=== PATIENT | female | born 1950 | race Hispanic/Latino ===

== ENCOUNTER 2017-06-10 09:11 | Emergency (ER) | payer SELFPAY ==
[~2017-06-10] VITALS: Ht 165.1 cm; Wt 93.7 kg
[2017-06-10] MEDS ORDERED: TETANUS/DIPHTHERIA TOX ADULT 0.5 ML SYR IM ONE (09:30)
[2017-06-10] MEDS ORDERED: HYDROCODONE/APAP 5MG-325MG TAB PO ONE (09:30)
== END 2017-06-10 10:38 | disposition home or self-care (01) ==
LOC: ER 09:11
DX: S00.83XA Contusion of other part of head, initial encounter (principal); S16.1XXA Strain of muscle, fascia and tendon at neck level, initial encounter; W01.198A Fall on same level from slipping, tripping and stumbling with subsequent striking against other object, initial encounter; Y92.008 Other place in unspecified non-institutional (private) residence as the place of occurrence of the external cause; I10 Essential (primary) hypertension; E11.9 Type 2 diabetes mellitus without complications
CPT/HCPCS: 90471; 90714; 99283

== ENCOUNTER 2019-02-28 15:18 | Observation (INO) | payer SELFPAY ==
[~2019-02-28] VITALS: Ht 160 cm; Wt 78.2 kg
--- OUTSIDE RECORDS SUMMARY | 2019-02-28 15:21 | XMS REPORT ---
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 Allergies, Adverse Reactions, Alerts This patient has no known allergies or adverse reactions. Medications This patient has no known medications. Encounters Start Date/Time End Date/Time Encounter Type Admission Type Attending [facility] Facility Care Department Encounter ID 2018-09-12 00:00:00 2018-09-12 00:00:00 Outpatient [facility] [id number] 2018-08-19 00:00:00 2018-08-19 00:00:00 Outpatient [facility] [id number] 2018-07-28 00:00:00 2018-07-28 00:00:00 Outpatient [facility] [id number] 2018-06-20 10:33:07 2018-06-20 10:33:07 Outpatient [facility] [id number] 2018-06-20 09:08:53 2018-06-20 09:08:53 Outpatient [facility] [id number] 2018-05-21 08:16:37 2018-05-21 08:16:37 Outpatient [facility] [id number] 2018-05-13 12:47:47 2018-05-13 12:47:47 Outpatient [facility] [id number] 2018-05-05 12:47:50 2018-05-05 12:47:50 Outpatient [facility] [id number] 2018-04-07 00:00:00 2018-04-07 00:00:00 Outpatient [facility] [id number] 2018-04-07 00:00:00 2018-04-07 00:00:00 Outpatient [facility] [id number] 2018-03-31 13:50:24 2018-03-31 13:50:24 Outpatient [facility] [id number] 2018-03-31 13:09:08 2018-03-31 13:09:08 Outpatient [facility] [id number] 2018-03-31 00:00:00 2018-03-31 00:00:00 Outpatient [facility] [id number] 2018-03-28 08:06:37 2018-03-28 08:06:37 Outpatient [facility] [id number] 2018-03-28 00:00:00 2018-03-28 00:00:00 Outpatient [facility] [id number] 2018-03-28 00:00:00 2018-03-28 00:00:00 Outpatient [facility] [id number] 2018-03-28 00:00:00 2018-03-28 00:00:00 Outpatient [facility] [id number] 2018-03-21 08:44:58 2018-03-21 08:44:58 Outpatient [facility] [id number] 2018-03-10 00:00:00 2018-03-10 00:00:00 Outpatient [facility] [id number] 2018-03-03 10:51:16 2018-03-03 10:51:16 Outpatient [facility] [id number] 2018-02-19 00:00:00 2018-02-19 00:00:00 Outpatient [facility] [id number] 2018-02-12 10:47:50 2018-02-12 10:47:50 Outpatient [facility] [id number] 2018-02-12 00:00:00 2018-02-12 00:00:00 Outpatient [facility] [id number] 2018-02-11 12:20:49 2018-02-11 12:20:49 Outpatient [facility] [id number] 2018-02-10 16:50:21 2018-02-10 16:50:21 Outpatient [facility] [id number] 2018-02-06 08:34:42 2018-02-06 08:34:42 Outpatient [facility] [id number] 2018-02-04 07:52:11 2018-02-04 07:52:11 Outpatient [facility] [id number] 2018-01-29 10:19:19 2018-01-29 10:19:19 Outpatient [facility] [id number] 2018-01-29 08:42:54 2018-01-29 08:42:54 Outpatient [facility] [id number] 2018-01-22 00:00:00 2018-01-22 00:00:00 Outpatient [facility] [id number] 2018-01-06 12:52:33 2018-01-06 12:52:33 Outpatient [facility] [id number] 2018-01-06 11:06:42 2018-01-06 11:06:42 Outpatient [facility] [id number] 2018-01-03 09:57:40 2018-01-03 09:57:40 Outpatient [facility] [id number] 2018-01-02 08:04:35 2018-01-02 08:04:35 Outpatient [facility] [id number] 2017-12-20 12:08:51 2017-12-20 12:08:51 Outpatient [facility] [id number] 2017-12-20 07:20:00 2017-12-20 07:20:00 Outpatient [facility] [id number] 2017-12-20 00:00:00 2017-12-20 00:00:00 Outpatient [facility] [id number] 2017-12-20 00:00:00 2017-12-20 00:00:00 Outpatient [facility] [id number] 2017-12-16 13:15:54 2017-12-16 13:15:54 Outpatient [facility] [id number] 2017-12-16 11:21:53 2017-12-16 11:21:53 Outpatient [facility] [id number] 2017-12-10 15:06:10 2017-12-10 15:06:10 Outpatient [facility] [id number] 2017-12-10 13:29:14 2017-12-10 13:29:14 Outpatient [facility] [id number] 2017-12-10 00:00:00 2017-12-10 00:00:00 Outpatient [facility] [id number] 2017-12-09 00:00:00 2017-12-09 00:00:00 Outpatient [facility] [id number] 2017-12-02 09:25:34 2017-12-02 09:25:34 Outpatient [facility] [id number] 2017-12-02 07:48:26 2017-12-02 07:48:26 Outpatient [facility] [id number] 2017-11-29 00:00:00 2017-11-29 00:00:00 Outpatient [facility] [id number] 2017-11-19 12:28:19 2017-11-19 12:28:19 Outpatient [facility] [id number] 2017-11-19 10:44:55 2017-11-19 10:44:55 Outpatient [facility] [id number] 2017-11-19 08:04:28 2017-11-19 08:04:28 Outpatient [facility] [id number] 2017-11-18 00:00:00 2017-11-18 00:00:00 Outpatient [facility] [id number] 2017-11-07 00:00:00 2017-11-07 00:00:00 Outpatient [facility] [id number] 2017-11-04 00:00:00 2017-11-04 00:00:00 Outpatient [facility] [id number] 2017-10-25 08:55:55 2017-10-25 08:55:55 Outpatient [facility] [id number] 2017-10-24 14:10:01 2017-10-24 14:10:01 Outpatient [facility] [id number] 2017-10-24 11:36:18 2017-10-24 11:36:18 Outpatient [facility] [id number] 2017-10-18 09:18:28 2017-10-18 09:18:28 Outpatient [facility] [id number] 2017-10-18 07:44:35 2017-10-18 07:44:35 Outpatient [facility] [id number] 2017-10-15 10:26:19 2017-10-15 10:26:19 Outpatient [facility] [id number] 2017-10-08 09:13:33 2017-10-08 09:13:33 Outpatient [facility] [id number] 2017-09-18 09:12:32 2017-09-18 09:12:32 Outpatient [facility] [id number] 2017-09-17 09:34:48 2017-09-17 09:34:48 Outpatient [facility] [id number] 2017-09-13 00:00:00 2017-09-13 00:00:00 Outpatient [facility] [id number] 2017-09-11 09:16:00 2017-09-11 09:16:00 Outpatient [facility] [id number] 2017-09-06 13:21:03 2017-09-06 13:21:03 Outpatient [facility] [id number] 2017-09-06 10:57:51 2017-09-06 10:57:51 Outpatient [facility] [id number] 2017-08-27 15:01:05 2017-08-27 15:01:05 Outpatient [facility] [id number] 2017-08-12 10:11:25 2017-08-12 10:11:25 Outpatient [facility] [id number] 2017-08-08 15:13:41 2017-08-08 15:13:41 Outpatient [facility] [id number] 2017-07-29 10:40:00 2017-07-29 10:40:00 Outpatient [facility] [id number] 2017-07-29 09:18:19 2017-07-29 09:18:19 Outpatient [facility] [id number] 2017-07-22 13:26:48 2017-07-22 13:26:48 Outpatient [facility] [id number] 2017-07-22 11:52:22 2017-07-22 11:52:22 Outpatient [facility] [id number] 2017-07-12 09:54:44 2017-07-12 09:54:44 Outpatient [facility] [id number] 2017-06-27 12:44:54 2017-06-27 12:44:54 Outpatient [facility] [id number] 2017-06-27 10:09:47 2017-06-27 10:09:47 Outpatient [facility] [id number] 2017-06-10 00:00:00 2017-06-10 00:00:00 Outpatient [facility] [id number] 2017-05-08 00:00:00 2017-05-08 00:00:00 Outpatient [facility] [id number] 2017-05-01 09:29:29 2017-05-01 09:29:29 Outpatient [facility] [id number] 2017-05-01 08:45:32 2017-05-01 08:45:32 Outpatient [facility] [id number] 2017-04-17 11:13:49 2017-04-17 11:13:49 Outpatient [facility] [id number] 2017-04-03 09:39:21 2017-04-03 09:39:21 Outpatient [facility] [id number] 2017-04-02 08:10:50 2017-04-02 08:10:50 Outpatient [facility] [id number] 2017-03-22 09:53:28 2017-03-22 09:53:28 Outpatient [facility] [id number] 2017-03-13 10:08:04 2017-03-13 10:08:04 Outpatient [facility] [id number] 2017-02-14 09:49:30 2017-02-14 09:49:30 Outpatient [facility] [id number] 2017-02-13 10:45:07 2017-02-13 10:45:07 Outpatient [facility] [id number] 2017-01-31 00:00:00 2017-01-31 00:00:00 Outpatient [facility] [id number] 2017-01-21 00:00:00 2017-01-21 00:00:00 Outpatient [facility] [id number] 2017-01-21 00:00:00 2017-01-21 00:00:00 Outpatient [facility] [id number] 2016-12-20 00:00:00 2016-12-20 00:00:00 Outpatient [facility] [id number] 2016-11-21 12:14:03 2016-11-21 12:14:03 Outpatient [facility] [id number] 2016-11-21 00:00:00 2016-11-21 00:00:00 Outpatient [facility] [id number] 2016-11-19 15:16:35 2016-11-19 15:16:35 Outpatient [facility] [id number] 2016-11-19 13:08:19 2016-11-19 13:08:19 Outpatient [facility] [id number] 2016-11-19 12:02:15 2016-11-19 12:02:15 Outpatient [facility] [id number] 2016-11-02 13:36:08 2016-11-02 13:36:08 Outpatient [facility] [id number] 2016-11-01 10:47:02 2016-11-01 10:47:02 Outpatient [facility] [id number] 2016-11-01 10:19:27 2016-11-01 10:19:27 Outpatient [facility] [id number] 2016-11-01 09:37:43 2016-11-01 09:37:43 Outpatient [facility] [id number] 2016-10-22 00:00:00 2016-10-22 00:00:00 Outpatient [facility] [id number]
[2019-02-28] MEDS ORDERED: SODIUM CHLORIDE 0.9% 1000ML 1,000 ML IV STA (15:55)
[2019-02-28 16:30] LABS: BASOPHILS % 0.3 % (0.0-1.0); EOSINOPHILS # (AUTO) 0.1 (0.0-0.4); EOSINOPHILS % 1.4 % (0.0-6.0); HEMATOCRIT 23.7 % (34.2-44.1); HEMOGLOBIN 7.4 g/dL (12.0-16.0); LYMPHOCYTES # (AUTO) 0.3 (1.0-3.2); LYMPHOCYTES % 4.6 % (18.0-39.1); MEAN CORPUSCULAR HEMOGLOBIN 27.4 pg (28-32); MEAN CORPUSCULAR HGB CONC 31.2 g/dL (31-35); MEAN CORPUSCULAR VOLUME 87.8 fL (81-99); MONOCYTES # (AUTO) 0.5 (0.2-0.8); MONOCYTES % 7.3 % (4.4-11.3); NEUTROPHILS # (AUTO) 6.2 (2.1-6.9); NEUTROPHILS % 85.8 % (38.7-80.0); PLATELET COUNT 215 x10e3/uL (140-360); RED CELL DISTRIBUTION WIDTH 15.8 % (11.7-14.4)
[2019-02-28] MEDS ORDERED: GLUCAGON FOR INJ 1 MG VIAL IV ONE (16:45)
[2019-02-28] MEDS ORDERED: SODIUM CHLORIDE 0.9% 1000ML 1,000 ML ONE (16:48)
[2019-02-28 16:51] LABS: ALBUMIN 3.5 g/dL (3.5-5.0); ANION GAP 13.9 mmol/L (8-16); CALCIUM 8.2 mg/dL (8.4-10.2); CREATININE, SERUM 2.23 mg/dL (0.57-1.11); POTASSIUM 3.9 mmol/L (3.5-5.1)
[2019-02-28 16:58] LABS: CREATINE KINASE MB 2.9 ng/mL (0-5.0)
[2019-02-28] MEDS ORDERED: CALCIUM GLUCONATE 10% INJ 4.65 MEQ in SODIUM CHLORIDE 0.9% 50ML 50 ML IV ONE (17:00)
--- NOTE | 2019-02-28 17:57 | Diagnostic Imaging Report ---
EXAMINATION: Head and cervical spine CT without contrast. HISTORY: Status post fall, head and neck pain COMPARISON: None. TECHNIQUE: Multidetector axial images were obtained without contrast from the foramen magnum to the vertex and through the cervical spine. The images were reconstructed using brain and bone algorithms. Thin section brain images were reformatted into coronal and sagittal planes. Dose modulation, iterative reconstruction, and/or weight based adjustment of the mA/kV was utilized to reduce the radiation dose to as low as reasonably achievable. HEAD CT FINDINGS: Skull/scalp: No lytic or blastic lesions. No fractures. Parenchyma: A few scattered limited hypodensities, most likely age-related minimal chronic microvascular ischemic changes slightly more confluent in the left parietal ward radiata. No mass, hemorrhage or CT evidence of acute vascular insult. Brain volume: Normal for age. Ventricles: No hydrocephalus or displacement. Arteries: No density suggestive of thrombus. Dural sinuses: No abnormal density. Extra-axial spaces: No abnormal density. Foramen magnum: No mass, Chiari malformation, or basilar invagination. Sella: No obvious mass. Paranasal/mastoid sinuses: Imaged portions unremarkable. CERVICAL SPINE CT FINDINGS: Alignment:Normal alignment and lordosis. Soft tissues: Normal. Vertebrae: Normal height and density. No acute fracture, infection or neoplasm. Degenerative changes: C1-C2: Mild degenerative changes without stenoses C2-C3: Facet arthroses mainly on the left without stenoses C3-C4: Asymmetric right disc osteophyte complex formation, uncovertebral hypertrophy. Severe right foraminal stenosis. Minimal anterolisthesis. C4-C5: Mild uncovertebral and facet arthrosis without stenoses C5-C6: Disc osteophyte complex formation, bilateral uncovertebral and facet arthrosis. Mild spinal canal and moderate bilateral foraminal stenoses. C6-C7: Normal C7-T1: Normal IMPRESSION: Head CT: 1. No acute postraumatic intracranial hemorrhage. 2. Mild chronic microvascular ischemic changes. Cervical spine CT: 1. No acute fractures or dislocations. 2. Chronic degenerative changes as described. Note: Acute post traumatic spinal cord, vascular or ligamentous injury cannot adequately be assessed with CT. Signed by: Dr. Melinda Dyson M.D. on 02/28/2019 5:54 PM
--- NOTE | 2019-02-28 18:26 | Diagnostic Imaging Report ---
EXAMINATION: CHEST SINGLE (PORTABLE) INDICATION: Fall COMPARISON: None FINDINGS: AP view TUBES and LINES: None. LUNGS: Lungs are well inflated. Lungs are clear. Prominent central pulmonary vasculature. PLEURA: No pleural effusion or pneumothorax. HEART AND MEDIASTINUM: Cardiac size is mildly enlarged. BONES AND SOFT TISSUES: No acute osseous lesion. Soft tissues are unremarkable. UPPER ABDOMEN: No free air under the diaphragm. IMPRESSION: Mild cardiomegaly and pulmonary vascular congestion. Signed by: Kb Cornelius DO on 02/28/2019 6:22 PM
--- NOTE | 2019-02-28 18:27 | Diagnostic Imaging Report ---
X-ray right knee 3 views HISTORY: Pain. COMPARISON: None available. FINDINGS: Bones: No acute displaced fracture. Osseous alignment is within normal limits. Joints: Osteophytes in the tibiofemoral and patellofemoral compartment. Soft tissues: Vascular calcifications. IMPRESSION: No acute displaced fractures. Mild degenerative changes in the knee. Signed by: Kb Cornelius DO on 02/28/2019 6:23 PM
--- NOTE | 2019-02-28 18:29 | Diagnostic Imaging Report ---
X-ray right hip 2 views and single frontal radiographic view of the pelvis. HISTORY: Pain. COMPARISON: None available. FINDINGS: Partial sacralization of right L5 transverse process with right sacrum where there is also degenerative changes. Enthesopathic changes about the hips and pelvis. Degenerative changes, disc osteophytes in the included mid to lower lumbar spine. Osteophytes of the bilateral hips. Mild degenerative changes of the sacral iliac joints. No acute displaced fracture. Osseous alignment is within normal limits. Joint spaces are maintained. IMPRESSION: No acute displaced fractures. Mild degenerative changes in the lower lumbar spine, hips, and pelvis. Signed by: Kb Cornelius DO on 02/28/2019 6:25 PM
[2019-02-28] MEDS ORDERED: SODIUM CHLORIDE 0.9% 1000ML 1,000 ML IV SCH ×2 (18:30→18:46)
[2019-02-28] MEDS ORDERED: AMITRIPTYLINE H10 MG PO (18:53)
[2019-02-28] MEDS ORDERED: CARVEDILOL12.5 MG PO (18:53)
[2019-02-28] MEDS ORDERED: ATORVASTATIN CA20 MG PO (18:53)
[2019-02-28] MEDS ORDERED: digitek PO (18:53)
[2019-02-28] MEDS ORDERED: NIFEDIPINE ER90 MG PO (18:53)
[2019-02-28] MEDS ORDERED: SPIRONOLACTONE25 MG PO (18:53)
[2019-02-28] MEDS ORDERED: FUROSEMIDE40 MG PO (18:53)
[2019-02-28] MEDS ORDERED: OMEPRAZOLE40 MG PO (18:53)
[2019-02-28] MEDS ORDERED: SODIUM CHLORIDE 0.9% 250ML 250 ML IV ONE (19:00)
[2019-02-28] MEDS ORDERED: [UNRECOGNIZED DRUG - OTHER] PO (19:08)
[2019-02-28] MEDS ORDERED: [UNRECOGNIZED DRUG - OTHER] PO (19:08)
--- NOTE | 2019-02-28 19:22 | NUR ---
REPORT CALLED. ALEX James AWARE THAT DR. LOCKE REQUESTED NO WEARING APPAREL FOLDER TO BE CONSULTED. PATIENT NEEDS CONSENT AND BLOOD TRANSFUSION
[2019-02-28 20:00] VITALS: BP 135/47
--- NOTE | 2019-02-28 20:00 | NUR ---
patient is a new admit from the ER patient is awake and talking. patient has been transferred into the bed. bed is in the lowest position and call light is within reach. will continue to monitor patient.
[2019-02-28] MEDS: ATORVASTATIN 20 MG TAB PO SCH (21:41)
--- NOTE | 2019-02-28 23:00 | NUR ---
patient has signed consent form to receive 2 units of blood.
[2019-02-28] MEDS: AMITRIPTYLINE HCL 10 MG TAB PO SCH (23:08)
[2019-02-28] MEDS ORDERED: SODIUM CHLORIDE 0.9% 250ML 250 ML ONE (23:56)
[2019-03-01] VITALS (8 sets, daily range): BP systolic 98–130; BP diastolic 46–59
--- NOTE | 2019-03-01 | NUR ---
1 unit of blood is transfusing. patient is tolerating procedure well, no adverse reactions observed. will continue to monitor transfusion process.
[2019-03-01 00:17] LABS: CREATINE KINASE MB 2.4 ng/mL (0-5.0)
--- NOTE | 2019-03-01 02:12 | NUR ---
1 unit of blood is done transfusing. no adverse reactions noted by patient.
--- NOTE | 2019-03-01 02:30 | NUR ---
patient is complaining of pain in the right IV site. A 20 gauge IV has bee started in patients left AC procedure tolerated well by patient.
[2019-03-01] MEDS ORDERED: SODIUM CHLORIDE 0.9% 250ML 250 ML ONE (02:53)
--- NOTE | 2019-03-01 03:05 | NUR ---
2 unit of blood is transfusing. no adverse reactions noted. will continue to monitor infusion process.
--- NOTE | 2019-03-01 06:00 | NUR ---
second unit of blood is done transfusing. patient tolerated transfusion process well. no adverse reactions noted.
--- NOTE | 2019-03-01 06:53 | NUR ---
report given to day nurse. patient is resting comfortably in the bed. bed is in the lowest position and call light is within reach. will continue to monitor patient.
--- NOTE | 2019-03-01 07:15 | NUR ---
The pt. is in bed asleep with family member in attendance at bedside. The pt. is in no apparent distress.
[2019-03-01 08:34] LABS: BASOPHILS % 0.3 % (0.0-1.0); EOSINOPHILS # (AUTO) 0.1 (0.0-0.4); HEMATOCRIT 26.3 % (34.2-44.1); HEMOGLOBIN 8.6 g/dL (12.0-16.0); LYMPHOCYTES # (AUTO) 0.5 (1.0-3.2); LYMPHOCYTES % 7.5 % (18.0-39.1); MEAN CORPUSCULAR HGB CONC 32.7 g/dL (31-35); MEAN CORPUSCULAR VOLUME 85.7 fL (81-99); MONOCYTES # (AUTO) 0.5 (0.2-0.8); MONOCYTES % 7.6 % (4.4-11.3); NEUTROPHILS # (AUTO) 5.3 (2.1-6.9); NEUTROPHILS % 82.3 % (38.7-80.0); PLATELET COUNT 170 x10e3/uL (140-360); RED BLOOD COUNT 3.07 x10e6/uL (3.6-5.1); RED CELL DISTRIBUTION WIDTH 16.1 % (11.7-14.4)
[2019-03-01] MEDS ORDERED: FUROSEMIDE 40 MG TAB PO SCH ×2 (09:00→17:00)
[2019-03-01] MEDS: SPIRONOLACTONE 25 MG TAB PO SCH (09:00)
[2019-03-01] MEDS: DIGOXIN 0.125 MG TAB PO SCH (09:00)
[2019-03-01] MEDS ORDERED: NIFEDIPINE CR 30 MG TAB PO SCH (09:00)
[2019-03-01] MEDS: PANTOPRAZOLE SOD 40 MG TABEC PO SCH (09:00)
[2019-03-01 09:09] LABS: ANION GAP 12.6 mmol/L (8-16); CALCIUM 7.6 mg/dL (8.4-10.2); CREATININE, SERUM 1.5 mg/dL (0.57-1.11); POTASSIUM 3.6 mmol/L (3.5-5.1)
[2019-03-01 09:18] LABS: CREATINE KINASE 19 IU/L (29-168)
[2019-03-01 09:21] LABS: B-TYPE NATRIURETIC PEPTIDE2 237.5 pg/mL (0-100)
[2019-03-01 09:30] LABS: FREE T4 (FREE THYROXINE) 0.77 ng/dL (0.8-1.8); THYROID STIMULATING HORMONE 1.527 uIU/mL (0.350-4.940)
[2019-03-01 09:51] LABS: FERRITIN 186.06 ng/mL (4.63-204.00)
[2019-03-01] MEDS ORDERED: ONDANSETRON HCL INJ 2MG/ML 2ML 2 MG/ML VIAL IV PRN (10:30)
[2019-03-01] MEDS ORDERED: HYDRALAZINE HCL 20 MG/ML VIAL IV PRN (10:30)
[2019-03-01] MEDS ORDERED: ACETAMINOPHEN 325 MG TAB PO PRN (10:30)
[2019-03-01] MEDS ORDERED: GABAPENTIN300 MG PO (11:35)
[2019-03-01] MEDS ORDERED: CELLCEPT250 MG (11:36)
[2019-03-01 15:02] LABS: FOLATE 9.6 ng/mL (7.0-15.4)
[2019-03-01 16:54] LABS: CREATINE KINASE MB 2.2 ng/mL (0-5.0)
[2019-03-01] MEDS: OYST-CAL-D 500MG TABLET PO SCH (17:25)
[2019-03-01] MEDS: FUROSEMIDE 20 MG TAB PO SCH (17:25)
--- NOTE | 2019-03-01 19:00 | NUR ---
received report from day nurse. patient is resting comfortably in bed. bed is in lowest position and call fernandez is within reach. will continue to monitor patient.
[2019-03-01] MEDS: AMITRIPTYLINE HCL 10 MG TAB PO SCH (20:54)
[2019-03-01] MEDS: ATORVASTATIN 20 MG TAB PO SCH (20:54)
[2019-03-02] VITALS: BP 121/53
[2019-03-02 03:33] LABS: BASOPHILS % 0.4 % (0.0-1.0); EOSINOPHILS # (AUTO) 0.2 (0.0-0.4); EOSINOPHILS % 3.1 % (0.0-6.0); HEMATOCRIT 28.5 % (34.2-44.1); LYMPHOCYTES # (AUTO) 0.8 (1.0-3.2); LYMPHOCYTES % 11.5 % (18.0-39.1); MEAN CORPUSCULAR HEMOGLOBIN 27.2 pg (28-32); MEAN CORPUSCULAR HGB CONC 31.6 g/dL (31-35); MEAN CORPUSCULAR VOLUME 86.1 fL (81-99); MONOCYTES # (AUTO) 0.5 (0.2-0.8); MONOCYTES % 7.7 % (4.4-11.3); NEUTROPHILS # (AUTO) 5.2 (2.1-6.9); PLATELET COUNT 197 x10e3/uL (140-360); RED BLOOD COUNT 3.31 x10e6/uL (3.6-5.1); RED CELL DISTRIBUTION WIDTH 16.8 % (11.7-14.4)
[2019-03-02 03:49] LABS: ANION GAP 14.3 mmol/L (8-16); CALCIUM 8.3 mg/dL (8.4-10.2); CREATININE, SERUM 1.33 mg/dL (0.57-1.11); POTASSIUM 3.3 mmol/L (3.5-5.1)
[2019-03-02 04:00] VITALS: BP 148/68
--- NOTE | 2019-03-02 07:00 | NUR ---
RECEIVED PATIENT RESTING IN BED. NO ACUTE DISTRESS NOTED. DENIES PAIN OR DISCOMFORT. CALL LIGHT WITHIN REACH. BED IN THE LOWEST POSITION.
--- NOTE | 2019-03-02 07:08 | NUR ---
report given to day nurse and walking rounds complete. patient is resting comfortably in bed. bed is in lowest position and call fernandez is within reach.
[2019-03-02 08:00] VITALS: BP 140/61
[2019-03-02] MEDS ORDERED: BISACODYL 5 MG TAB EC PO ONE (09:15)
[2019-03-02] MEDS ORDERED: FERROUS SULFAT325 MG PO (09:16)
[2019-03-02] MEDS ORDERED: ASCORBIC ACID500 MG PO (09:16)
[2019-03-02] MEDS: DIGOXIN 0.125 MG TAB PO SCH (09:49)
[2019-03-02] MEDS: OYST-CAL-D 500MG TABLET PO SCH (09:49)
[2019-03-02] MEDS: FUROSEMIDE 20 MG TAB PO SCH (09:49)
[2019-03-02] MEDS: PANTOPRAZOLE SOD 40 MG TABEC PO SCH (09:49)
[2019-03-02] MEDS: SPIRONOLACTONE 25 MG TAB PO SCH (09:49)
[2019-03-02 10:02] VITALS: BP 140/61
[2019-03-02] MEDS ORDERED: POTASSIUM CHLORIDE 20 MEQ TAB CR PO ONE (10:15)
[2019-03-02] MEDS ORDERED: ONDANSETRON HCL 4 MG ORAL DISINTEGRATING TAB PO PRN (10:45)
--- NOTE | 2019-03-02 11:26 | NUR ---
RECEIVED DC ORDER FROM MD. PATIENT IS IN STABLE CONDITION. O2 SAT IS 100% ON ROOM AIR. IV LINE TO LEFT AC DCD WITH TIP INTACT, PRESSURE APPLIED TO SITE, NO BLEEDING NOTED. DISCHARGE TEACHING PROVIDED TO PATIENT, SHE VERBALIZED UNDERSTANDING. DISCHARGE FOLDER WITH PRESCRIPTION ON HAND. ALL PERSONAL ITEMS ON HAND. PATIENT ACCOMPANIED TO PRIVATE AUTO VIA WHEELCHAIR BY STAFF.
--- NOTE | 2019-03-04 11:59 | Discharge Summary ---
ADMISSION DIAGNOSES: 1. Trip and fall. 2. Normocytic anemia. 3. Hypertension. 4. Elevated BNP. 5. Acute kidney injury versus chronic kidney disease III. 6. Hypocalcemia. DISCHARGE DIAGNOSES: 1. Trip and fall. 2. Normocytic anemia. 3. Hypertension. 4. Elevated BNP. 5. Acute kidney injury versus chronic kidney disease III. 6. Hypocalcemia. 7. Hypokalemia, rule out GI bleed. HISTORY: Hypertension, type 2 diabetes, scleroderma. SURGICAL HISTORY: Cholecystectomy. FAMILY HISTORY: The patient's mom, dad, and sisters have diabetes. The patient's sister also had a stroke. SOCIAL HISTORY: Noncontributory. HOSPITAL COURSE: A 68-year-old female admitted to the ER after tripping on furniture and falling to the ground. She states she fell to her knees. In the ER, her hemoglobin was 7.4. She denies bright red blood per rectum and black tarry stools, nausea, vomiting, abdominal pain, and dizziness. On admission, the patient had a right knee x-ray which was negative. Right hip x-ray negative. Chest x-ray with mild cardiomegaly. CT of the C-spine showed no acute fractures, dislocation. CT of the head showed no acute abnormalities. The patient's hemoglobin was 7.4, so she received 2 units of blood. Her stool for blood came back negative. The hemoglobin remained stable, so the patient was sent home with new prescriptions for iron and vitamin C. She will follow up with primary care in 1 to 2 weeks. The patient understands discharge instructions and agrees to plan. Vital signs stable. Patient afebrile. Dictated by Naomi Bryant NP MD CAROL Reyes/MODL /[id number]
== END 2019-03-02 11:43 | disposition home or self-care (01) ==
LOC: ER 15:18 → ERHOLD 18:46 → MED/SURG3 19:41
PROVIDERS: ADMIT Internal Medicine; ATTEND Internal Medicine
DX: S06.890A Other specified intracranial injury without loss of consciousness, initial encounter (principal); S80.01XA Contusion of right knee, initial encounter; S43.61XA Sprain of right sternoclavicular joint, initial encounter; N17.9 Acute kidney failure, unspecified; R00.1 Bradycardia, unspecified; I95.0 Idiopathic hypotension; W01.0XXA Fall on same level from slipping, tripping and stumbling without subsequent striking against object, initial encounter; T44.7X5A Adverse effect of beta-adrenoreceptor antagonists, initial encounter; M34.9 Systemic sclerosis, unspecified; Z90.49 Acquired absence of other specified parts of digestive tract; Z83.3 Family history of diabetes mellitus; Z82.3 Family history of stroke; D64.9 Anemia, unspecified; N18.3 Chronic kidney disease, stage 3 (moderate); E83.51 Hypocalcemia; E66.9 Obesity, unspecified; Z68.30 Body mass index [BMI] 30.0-30.9, adult; E11.22 Type 2 diabetes mellitus with diabetic chronic kidney disease; I12.9 Hypertensive chronic kidney disease with stage 1 through stage 4 chronic kidney disease, or unspecified chronic kidney disease; E87.6 Hypokalemia; K62.5 Hemorrhage of anus and rectum
CPT/HCPCS: 36415 ×3; 36430; 70450; 71045; 72125; 73502; 73562; 80048 ×2; 80053; 80162; 82270; 82550 ×2; 82553 ×2; 82607; 82728; 82746; 83036; 83540; 83880 ×2; 84439; 84443; 84466; 84484 ×2; 85025 ×3; 86850; 86900; 86920; 93005; 93306; 97116; 97161; 99284; G0378 ×3; J0610; J1610; J7030; J7050 ×2; P9016 ×2; S0164 ×2

== ENCOUNTER 2020-06-20 13:55 | Inpatient (IN) | payer SELFPAY ==
[~2020-06-20] VITALS: Ht 162.6 cm; Wt 75.6 kg
[~2020-06-20 13:55] MED LIST: AMITRIPTYLINE H10 MG PO; ASCORBIC ACID500 MG PO; ATORVASTATIN CA20 MG PO; CARVEDILOL12.5 MG PO; CELLCEPT250 MG; FERROUS SULFAT325 MG PO; FUROSEMIDE40 MG PO; GABAPENTIN300 MG PO; NIFEDIPINE ER90 MG PO; OMEPRAZOLE40 MG PO; SPIRONOLACTONE25 MG PO; [UNRECOGNIZED DRUG - OTHER] PO; [UNRECOGNIZED DRUG - OTHER] PO; digitek PO
[2020-06-20] MEDS ORDERED: DIGITEK125 MC2 PO (14:39)
[2020-06-20] MEDS ORDERED: MYCOPHENOLATE500 MG PO (14:39)
[2020-06-20] MEDS ORDERED: DIOVAN80 MG PO (14:39)
[2020-06-20] MEDS ORDERED: BENZONATATE100 MG PO (14:39)
[2020-06-20] MEDS ORDERED: LETAIRIS5 MG PO (14:39)
[2020-06-20] MEDS ORDERED: SERTRALINE HCL50 MG PO (14:39)
[2020-06-20] MEDS ORDERED: PROAIR HFA INH8.5 GM INH (14:39)
[2020-06-20] MEDS ORDERED: FENOFIBRATE145 MG PO (14:39)
[2020-06-20] MEDS ORDERED: REVATIO20 MG PO (14:39)
[2020-06-20 15:22] LABS: BASOPHILS % 0.2 % (0.0-1.0); HEMATOCRIT 31.7 % (34.2-44.1); HEMOGLOBIN 9.8 g/dL (12.0-16.0); LYMPHOCYTES # (AUTO) 0.2 (1.0-3.2); LYMPHOCYTES % 3.6 % (18.0-39.1); MEAN CORPUSCULAR HEMOGLOBIN 26.6 pg (28-32); MEAN CORPUSCULAR HGB CONC 30.9 g/dL (31-35); MEAN CORPUSCULAR VOLUME 85.9 fL (81-99); MONOCYTES # (AUTO) 0.2 (0.2-0.8); MONOCYTES % 4.9 % (4.4-11.3); NEUTROPHILS # (AUTO) 4.3 (2.1-6.9); NEUTROPHILS % 90.7 % (38.7-80.0); PLATELET COUNT 190 x10e3/uL (140-360); RED BLOOD COUNT 3.69 x10e6/uL (3.6-5.1); RED CELL DISTRIBUTION WIDTH 14.1 % (11.7-14.4)
[2020-06-20 15:30] LABS: INR 1.14; PROTHROMBIN TIME 15.3 seconds (11.9-14.5)
[2020-06-20 15:31] LABS: PARTIAL THROMBOPLASTIN TIME 31.8 seconds (23.8-35.5)
[2020-06-20 15:39] LABS: ALBUMIN 3.1 g/dL (3.5-5.0); ALBUMIN/GLOBULIN RATIO 0.8 (0.8-2.0); CREATININE, SERUM 2.32 mg/dL (0.57-1.11)
[2020-06-20 15:46] LABS: CREATINE KINASE MB 1.3 ng/mL (0-5.0)
[2020-06-20 16:00] LABS: BAND NEUTROPHILS % (MANUAL) 1 %; LYMPHOCYTES % (MANUAL) 3 % (19-48); MONOCYTES % (MANUAL) 6 % (3.4-9.0); NEUTROPHILS % (MANUAL) 90 % (40-74); PLATELET ESTIMATE ADEQUATE; PLATELET MORPHOLOGY COMMENT FEW GIANT
[2020-06-20 16:02] LABS: TOXIC GRANULATION MODERATE
[2020-06-20 16:03] LABS: HYPOCHROMASIA SLIGHT; POIKILOCYTOSIS SLIGHT
[2020-06-20 16:04] LABS: SCHISTOCYTES RARE
[2020-06-20] MEDS ORDERED: SODIUM CHLORIDE 0.9% 1000ML 1,000 ML IV ONE (16:45)
[2020-06-20] MEDS ORDERED: ALBUTEROL SULFATE HFA 8GM INHALATION AEROSOL INH PRN (16:45)
[2020-06-20] MEDS: CEFTRIAXONE SOD 1 GM/NS 50 ML 50 ML IV SCH (16:48)
[2020-06-20] MEDS: ASCORBIC ACID 500 MG TAB PO SCH (16:48)
[2020-06-20] MEDS: DEXAMETHASONE SOD PHOS 10 MG/1 ML VIAL IV SCH (16:48)
[2020-06-20] MEDS: ENOXAPARIN 30 MG/0.3 ML SYR SC SCH (16:48)
[2020-06-20] MEDS ORDERED: DEXAMETHASONE SOD PHOS 10 MG/1 ML VIAL IV SCH (17:00)
[2020-06-20] MEDS ORDERED: ASCORBIC ACID 500 MG TAB PO SCH (17:00)
[2020-06-20] MEDS ORDERED: ENOXAPARIN INJ 80 MG/0.8 ML SYR SC SCH (17:00)
[2020-06-20] MEDS: AZITHROMYCIN 500MG/NS 250 ML 250 ML IV SCH (17:05)
[2020-06-20] MEDS: GABAPENTIN 300 MG CAP PO SCH (20:30)
[2020-06-20] MEDS: SILDENAFIL CITRATE 20 MG TAB PO SCH (20:30)
[2020-06-20] MEDS: ATORVASTATIN 20 MG TAB PO SCH (20:30)
[2020-06-20] MEDS ORDERED: ZOLPIDEM TARTRATE 5 MG TAB PO PRN (21:00)
[2020-06-20 22:48] VITALS: BP 133/55
[2020-06-20 23:00] VITALS: BP 133/55
[2020-06-20 23:52] LABS: CREATINE KINASE MB 1.1 ng/mL (0-5.0)
[2020-06-21] VITALS (7 sets, daily range): BP systolic 136–164; BP diastolic 62–66
[2020-06-21] MEDS: DEXAMETHASONE SOD PHOS 10 MG/1 ML VIAL IV SCH (05:48)
[2020-06-21 06:32] LABS: ALBUMIN 2.9 g/dL (3.5-5.0); ALBUMIN/GLOBULIN RATIO 0.7 (0.8-2.0); ANION GAP 18.6 mmol/L (8-16); CALCIUM 8.6 mg/dL (8.4-10.2); CREATININE, SERUM 2.4 mg/dL (0.57-1.11); POTASSIUM 4.6 mmol/L (3.5-5.1)
[2020-06-21 06:50] LABS: HEMATOCRIT 29.6 % (34.2-44.1); HEMOGLOBIN 9.2 g/dL (12.0-16.0); LYMPHOCYTES # (AUTO) 0.2 (1.0-3.2); LYMPHOCYTES % 10.5 % (18.0-39.1); MEAN CORPUSCULAR HEMOGLOBIN 26.7 pg (28-32); MEAN CORPUSCULAR HGB CONC 31.1 g/dL (31-35); MONOCYTES # (AUTO) 0.1 (0.2-0.8); MONOCYTES % 3.2 % (4.4-11.3); NEUTROPHILS # (AUTO) 1.9 (2.1-6.9); NEUTROPHILS % 85.4 % (38.7-80.0); PLATELET COUNT 183 x10e3/uL (140-360); RED BLOOD COUNT 3.44 x10e6/uL (3.6-5.1); RED CELL DISTRIBUTION WIDTH 14.2 % (11.7-14.4)
[2020-06-21] MEDS ORDERED: ZINC SULFATE 220 MG CAP PO SCH (09:00)
[2020-06-21] MEDS: ENOXAPARIN 30 MG/0.3 ML SYR SC SCH ×2 (09:22→17:30)
[2020-06-21] MEDS: ASCORBIC ACID 500 MG TAB PO SCH ×2 (09:22→17:30)
[2020-06-21] MEDS: VALSARTAN 80 MG TAB PO SCH (09:22)
[2020-06-21] MEDS: SILDENAFIL CITRATE 20 MG TAB PO SCH ×3 (09:22→20:29)
[2020-06-21] MEDS: ZINC SULFATE 50 MG CAP PO SCH (09:22)
[2020-06-21 11:58] LABS: LYMPHOCYTES % (MANUAL) 8 % (19-48); MONOCYTES % (MANUAL) 3 % (3.4-9.0); NEUTROPHILS % (MANUAL) 89 % (40-74); PLATELET ESTIMATE ADEQUATE; PLATELET MORPHOLOGY COMMENT NORMAL; RBC MORPHOLOGY COMMENT NORMAL
[2020-06-21 13:40] LABS: CREATINE KINASE MB 1.2 ng/mL (0-5.0)
[2020-06-21] MEDS: CEFTRIAXONE SOD 1 GM/NS 50 ML 50 ML IV SCH (17:30)
[2020-06-21] MEDS: AZITHROMYCIN 500MG/NS 250 ML 250 ML IV SCH (18:37)
[2020-06-21] MEDS ORDERED: SODIUM CHLORIDE 0.9% 1000ML 1,000 ML IV ONE (19:45)
[2020-06-21 20:18] LABS: CLARITY,URINE TURBID (CLEAR); COLOR,URINE YELLOW (YELLOW)
[2020-06-21 20:19] LABS: KETONES,URINE NEGATIVE (NEGATIVE); LEUKOCYTE ESTERASE ,URINE LARGE (NEGATIVE); NITRITE,URINE NEGATIVE (NEGATIVE); PROTEIN,URINE DIPSTICK 1+ (NEGATIVE)
[2020-06-21 20:20] LABS: URINE UROBILINOGEN 0.2 mg/dL (0.2 - 1)
[2020-06-21 20:24] LABS: BACTERIA,URINE FEW /HPF; EPITHELIAL CELLS,URINE RARE /LPF; RBC,URINE 21-50 /HPF (0-5); WBC,URINE (MAN) >50 /HPF (0-5)
[2020-06-21] MEDS: GABAPENTIN 300 MG CAP PO SCH (20:29)
[2020-06-21] MEDS: ATORVASTATIN 20 MG TAB PO SCH (20:29)
[2020-06-22] VITALS (7 sets, daily range): BP systolic 124–137; BP diastolic 45–64
[2020-06-22 05:23] LABS: ANION GAP 18.8 mmol/L (8-16); CALCIUM 8.9 mg/dL (8.4-10.2); CREATININE, SERUM 2.21 mg/dL (0.57-1.11); POTASSIUM 4.8 mmol/L (3.5-5.1)
[2020-06-22] MEDS: DEXAMETHASONE SOD PHOS 10 MG/1 ML VIAL IV SCH (05:55)
[2020-06-22] MEDS: ENOXAPARIN 30 MG/0.3 ML SYR SC SCH ×2 (08:43→15:45)
[2020-06-22] MEDS: SILDENAFIL CITRATE 20 MG TAB PO SCH ×3 (08:43→20:13)
[2020-06-22] MEDS: ZINC SULFATE 50 MG CAP PO SCH (08:43)
[2020-06-22] MEDS: ASCORBIC ACID 500 MG TAB PO SCH ×2 (08:43→15:45)
[2020-06-22] MEDS: VALSARTAN 80 MG TAB PO SCH (08:43)
[2020-06-22] MEDS: CEFTRIAXONE SOD 1 GM/NS 50 ML 50 ML IV SCH (14:21)
[2020-06-22] MEDS ORDERED: REMDESIVIR 200MG/NS 100ML 200 MG in SODIUM CHLORIDE 0.9% 100 ML 100 ML IV ONE (15:30)
[2020-06-22] MEDS: AZITHROMYCIN 500MG/NS 250 ML 250 ML IV SCH (17:23)
[2020-06-22] MEDS: GABAPENTIN 300 MG CAP PO SCH (20:13)
[2020-06-22] MEDS: ATORVASTATIN 20 MG TAB PO SCH (20:13)
[2020-06-23] VITALS (7 sets, daily range): BP systolic 140–182; BP diastolic 52–71
[2020-06-23] MEDS: DEXAMETHASONE SOD PHOS 10 MG/1 ML VIAL IV SCH (06:04)
[2020-06-23] MEDS: ENOXAPARIN 30 MG/0.3 ML SYR SC SCH ×2 (09:42→17:33)
[2020-06-23] MEDS: SILDENAFIL CITRATE 20 MG TAB PO SCH ×3 (09:42→21:36)
[2020-06-23] MEDS: ZINC SULFATE 50 MG CAP PO SCH (09:42)
[2020-06-23] MEDS: ASCORBIC ACID 500 MG TAB PO SCH ×2 (09:42→17:33)
[2020-06-23] MEDS ORDERED: LIDOCAINE HCL 1% LOCAL INJ 20 ML VIAL ONE (10:01)
[2020-06-23] MEDS ORDERED: HEPARIN SOD (PORCINE) 1000 UNIT/ML SDV ONE (10:01)
[2020-06-23] MEDS ORDERED: SODIUM CHLORIDE 0.9% 1000ML 1,000 ML ONE (12:12)
[2020-06-23] MEDS ORDERED: MANNITOL 25% 12.5GM/50 ML VIAL IV PRN (12:30)
[2020-06-23] MEDS ORDERED: SODIUM CHLORIDE 0.9% 1000ML 2,000 ML IV PRN (15:45)
[2020-06-23] MEDS ORDERED: ALBUMIN 25% 12.5GM 0.25 GM/ML BTL IV PRN (15:45)
[2020-06-23] MEDS ORDERED: HEPARIN SOD (PORCINE) 1000 UNIT/ML SDV IV PRN (15:45)
[2020-06-23] MEDS: REMDESIVIR 100MG/NS 100ML 100 MG in SODIUM CHLORIDE 0.9% 100 ML 100 ML IV SCH (17:00)
[2020-06-23] MEDS: AZITHROMYCIN 500MG/NS 250 ML 250 ML IV SCH (17:33)
[2020-06-23] MEDS: CEFTRIAXONE SOD 1 GM/NS 50 ML 50 ML IV SCH (18:42)
[2020-06-23] MEDS: ATORVASTATIN 20 MG TAB PO SCH (21:36)
[2020-06-23] MEDS: GABAPENTIN 300 MG CAP PO SCH (21:36)
[2020-06-24] VITALS (8 sets, daily range): BP systolic 147–189; BP diastolic 57–78
[2020-06-24] MEDS: DEXAMETHASONE SOD PHOS 10 MG/1 ML VIAL IV SCH (05:14)
[2020-06-24 05:17] LABS: ANION GAP 19.2 mmol/L (8-16); CALCIUM 8.5 mg/dL (8.4-10.2); CREATININE, SERUM 1.27 mg/dL (0.57-1.11); POTASSIUM 4.2 mmol/L (3.5-5.1)
[2020-06-24] MEDS: SILDENAFIL CITRATE 20 MG TAB PO SCH ×4 (09:00→20:29)
[2020-06-24] MEDS: ASCORBIC ACID 500 MG TAB PO SCH ×2 (09:17→17:34)
[2020-06-24] MEDS: ZINC SULFATE 50 MG CAP PO SCH (09:17)
[2020-06-24] MEDS: ENOXAPARIN 30 MG/0.3 ML SYR SC SCH ×2 (09:17→17:34)
[2020-06-24] MEDS ORDERED: HEPARIN SOD (PORCINE) 1000 UNIT/ML SDV IV PRN (11:45)
[2020-06-24] MEDS: REMDESIVIR 100MG/NS 100ML 100 MG in SODIUM CHLORIDE 0.9% 100 ML 100 ML IV SCH (17:33)
[2020-06-24] MEDS: CEFTRIAXONE SOD 1 GM/NS 50 ML 50 ML IV SCH (17:34)
[2020-06-24] MEDS: AZITHROMYCIN 500MG/NS 250 ML 250 ML IV SCH (17:34)
[2020-06-24] MEDS: GABAPENTIN 300 MG CAP PO SCH (20:29)
[2020-06-24] MEDS: ATORVASTATIN 20 MG TAB PO SCH (20:29)
[2020-06-25] VITALS (8 sets, daily range): BP systolic 122–162; BP diastolic 51–67
[2020-06-25] MEDS: DEXAMETHASONE SOD PHOS 10 MG/1 ML VIAL IV SCH (05:11)
[2020-06-25 05:13] LABS: HEMATOCRIT 33.9 % (34.2-44.1); HEMOGLOBIN 10.5 g/dL (12.0-16.0); MEAN CORPUSCULAR HEMOGLOBIN 27.1 pg (28-32); MEAN CORPUSCULAR VOLUME 87.4 fL (81-99); PLATELET COUNT 198 x10e3/uL (140-360); RED BLOOD COUNT 3.88 x10e6/uL (3.6-5.1); RED CELL DISTRIBUTION WIDTH 14.2 % (11.7-14.4)
[2020-06-25 05:28] LABS: ANION GAP 19.4 mmol/L (8-16); CALCIUM 8.7 mg/dL (8.4-10.2); CREATININE, SERUM 1.21 mg/dL (0.57-1.11); POTASSIUM 4.4 mmol/L (3.5-5.1)
[2020-06-25 07:28] LABS: LYMPHOCYTES % (MANUAL) 3 % (19-48); MONOCYTES % (MANUAL) 6 % (3.4-9.0); NEUTROPHILS % (MANUAL) 91 % (40-74); PLATELET ESTIMATE ADEQUATE; RBC MORPHOLOGY COMMENT NORMAL
[2020-06-25 07:29] LABS: PLATELET MORPHOLOGY COMMENT NORMAL
[2020-06-25] MEDS: SILDENAFIL CITRATE 20 MG TAB PO SCH ×3 (09:00→21:11)
[2020-06-25] MEDS: ENOXAPARIN 30 MG/0.3 ML SYR SC SCH ×2 (09:18→17:02)
[2020-06-25] MEDS: ASCORBIC ACID 500 MG TAB PO SCH ×2 (09:18→17:02)
[2020-06-25] MEDS: ZINC SULFATE 50 MG CAP PO SCH (09:18)
[2020-06-25] MEDS: REMDESIVIR 100MG/NS 100ML 100 MG in SODIUM CHLORIDE 0.9% 100 ML 100 ML IV SCH (14:06)
[2020-06-25] MEDS: AZITHROMYCIN 500MG/NS 250 ML 250 ML IV SCH (15:08)
[2020-06-25] MEDS: CEFTRIAXONE SOD 1 GM/NS 50 ML 50 ML IV SCH (15:08)
[2020-06-25] MEDS: GABAPENTIN 300 MG CAP PO SCH (21:11)
[2020-06-25] MEDS: ATORVASTATIN 20 MG TAB PO SCH (21:11)
[2020-06-26] VITALS (9 sets, daily range): BP systolic 91–183; BP diastolic 47–66
[2020-06-26] MEDS: DEXAMETHASONE SOD PHOS 10 MG/1 ML VIAL IV SCH (05:39)
[2020-06-26 06:16] LABS: BASOPHILS % 0.2 % (0.0-1.0); EOSINOPHILS # (AUTO) 0.1 (0.0-0.4); EOSINOPHILS % 0.8 % (0.0-6.0); HEMATOCRIT 32.1 % (34.2-44.1); LYMPHOCYTES # (AUTO) 0.7 (1.0-3.2); LYMPHOCYTES % 10.1 % (18.0-39.1); MEAN CORPUSCULAR HEMOGLOBIN 26.9 pg (28-32); MEAN CORPUSCULAR HGB CONC 31.2 g/dL (31-35); MEAN CORPUSCULAR VOLUME 86.3 fL (81-99); MONOCYTES # (AUTO) 0.5 (0.2-0.8); MONOCYTES % 7.1 % (4.4-11.3); NEUTROPHILS # (AUTO) 5.2 (2.1-6.9); NEUTROPHILS % 80.6 % (38.7-80.0); PLATELET COUNT 186 x10e3/uL (140-360); RED BLOOD COUNT 3.72 x10e6/uL (3.6-5.1); RED CELL DISTRIBUTION WIDTH 14.2 % (11.7-14.4)
[2020-06-26 06:38] LABS: ANION GAP 14.4 mmol/L (8-16); CALCIUM 8.4 mg/dL (8.4-10.2); CREATININE, SERUM 1.15 mg/dL (0.57-1.11); POTASSIUM 4.4 mmol/L (3.5-5.1)
[2020-06-26] MEDS: SILDENAFIL CITRATE 20 MG TAB PO SCH ×3 (08:40→20:39)
[2020-06-26] MEDS: ZINC SULFATE 50 MG CAP PO SCH (08:41)
[2020-06-26] MEDS: ASCORBIC ACID 500 MG TAB PO SCH ×2 (08:41→14:33)
[2020-06-26] MEDS: ENOXAPARIN 30 MG/0.3 ML SYR SC SCH ×2 (08:41→17:00)
[2020-06-26] MEDS: REMDESIVIR 100MG/NS 100ML 100 MG in SODIUM CHLORIDE 0.9% 100 ML 100 ML IV SCH (14:33)
[2020-06-26] MEDS: CEFTRIAXONE SOD 1 GM/NS 50 ML 50 ML IV SCH (15:45)
[2020-06-26] MEDS: AZITHROMYCIN 500MG/NS 250 ML 250 ML IV SCH (17:00)
[2020-06-26] MEDS: POLYETHYLENE GLYCOL 3350 17 GM PACK PO SCH (17:02)
[2020-06-26] MEDS ORDERED: BISACODYL 10 MG SUPP PR PRN (19:15)
[2020-06-26] MEDS: ATORVASTATIN 20 MG TAB PO SCH (20:39)
[2020-06-26] MEDS: GABAPENTIN 300 MG CAP PO SCH (20:39)
[2020-06-27] VITALS (8 sets, daily range): BP systolic 108–153; BP diastolic 51–59
[2020-06-27 05:19] LABS: BASOPHILS % 0.1 % (0.0-1.0); EOSINOPHILS # (AUTO) 0.1 (0.0-0.4); EOSINOPHILS % 1.1 % (0.0-6.0); HEMATOCRIT 29.7 % (34.2-44.1); HEMOGLOBIN 9.2 g/dL (12.0-16.0); LYMPHOCYTES # (AUTO) 0.8 (1.0-3.2); LYMPHOCYTES % 9.4 % (18.0-39.1); MEAN CORPUSCULAR HEMOGLOBIN 26.3 pg (28-32); MEAN CORPUSCULAR VOLUME 84.9 fL (81-99); MONOCYTES # (AUTO) 0.4 (0.2-0.8); MONOCYTES % 5.5 % (4.4-11.3); NEUTROPHILS # (AUTO) 6.6 (2.1-6.9); NEUTROPHILS % 81.9 % (38.7-80.0); PLATELET COUNT 224 x10e3/uL (140-360); RED CELL DISTRIBUTION WIDTH 14.3 % (11.7-14.4)
[2020-06-27] MEDS: DEXAMETHASONE SOD PHOS 10 MG/1 ML VIAL IV SCH (05:22)
[2020-06-27 05:55] LABS: ANION GAP 14.5 mmol/L (8-16); CALCIUM 8.5 mg/dL (8.4-10.2); CREATININE, SERUM 0.99 mg/dL (0.57-1.11); POTASSIUM 4.5 mmol/L (3.5-5.1)
[2020-06-27] MEDS: POLYETHYLENE GLYCOL 3350 17 GM PACK PO SCH (09:00)
[2020-06-27] MEDS: SILDENAFIL CITRATE 20 MG TAB PO SCH ×3 (10:00→20:22)
[2020-06-27] MEDS: ASCORBIC ACID 500 MG TAB PO SCH ×2 (10:00→16:21)
[2020-06-27] MEDS: ENOXAPARIN 30 MG/0.3 ML SYR SC SCH (10:00)
[2020-06-27] MEDS: ZINC SULFATE 50 MG CAP PO SCH (10:00)
[2020-06-27] MEDS: CEFTRIAXONE SOD 1 GM/NS 50 ML 50 ML IV SCH (14:46)
[2020-06-27] MEDS ORDERED: SODIUM CHLORIDE 0.9% 250ML 250 ML ONE (14:46)
[2020-06-27] MEDS: AZITHROMYCIN 500MG/NS 250 ML 250 ML IV SCH (16:21)
[2020-06-27] MEDS: ATORVASTATIN 20 MG TAB PO SCH (20:22)
[2020-06-27] MEDS: GABAPENTIN 300 MG CAP PO SCH (20:22)
[2020-06-28] VITALS (8 sets, daily range): BP systolic 136–168; BP diastolic 51–68
[2020-06-28 05:32] LABS: ANION GAP 9.6 mmol/L (8-16); CALCIUM 8.3 mg/dL (8.4-10.2); CREATININE, SERUM 0.95 mg/dL (0.57-1.11); POTASSIUM 4.6 mmol/L (3.5-5.1)
[2020-06-28] MEDS: SILDENAFIL CITRATE 20 MG TAB PO SCH ×3 (09:45→21:21)
[2020-06-28] MEDS: POLYETHYLENE GLYCOL 3350 17 GM PACK PO SCH (09:45)
[2020-06-28] MEDS: ASCORBIC ACID 500 MG TAB PO SCH ×2 (09:45→16:38)
[2020-06-28] MEDS: ZINC SULFATE 50 MG CAP PO SCH (09:45)
[2020-06-28] MEDS: PREDNISONE 20 MG TAB PO SCH (16:37)
[2020-06-28] MEDS: ATORVASTATIN 20 MG TAB PO SCH (21:21)
[2020-06-28] MEDS: GABAPENTIN 300 MG CAP PO SCH (21:21)
[2020-06-29] VITALS (8 sets, daily range): BP systolic 139–153; BP diastolic 45–56
[2020-06-29] MEDS: POLYETHYLENE GLYCOL 3350 17 GM PACK PO SCH (09:00)
[2020-06-29] MEDS: PREDNISONE 20 MG TAB PO SCH ×2 (09:05→16:37)
[2020-06-29] MEDS: ZINC SULFATE 50 MG CAP PO SCH (09:05)
[2020-06-29] MEDS: SILDENAFIL CITRATE 20 MG TAB PO SCH ×3 (09:05→21:13)
[2020-06-29] MEDS: ASCORBIC ACID 500 MG TAB PO SCH ×2 (09:05→16:37)
[2020-06-29] MEDS: ATORVASTATIN 20 MG TAB PO SCH (21:13)
[2020-06-29] MEDS: GABAPENTIN 300 MG CAP PO SCH (21:13)
[2020-06-30] VITALS: BP 149/54
[2020-06-30 07:30] VITALS: BP 159/52
[2020-06-30] MEDS: POLYETHYLENE GLYCOL 3350 17 GM PACK PO SCH (09:00)
[2020-06-30] MEDS: SILDENAFIL CITRATE 20 MG TAB PO SCH ×3 (09:03→20:46)
[2020-06-30] MEDS: PREDNISONE 20 MG TAB PO SCH ×2 (09:03→17:32)
[2020-06-30] MEDS: ASCORBIC ACID 500 MG TAB PO SCH ×2 (09:03→17:32)
[2020-06-30] MEDS: ZINC SULFATE 50 MG CAP PO SCH (09:03)
[2020-06-30 11:30] VITALS: BP 155/67
[2020-06-30 16:00] VITALS: BP 165/81
[2020-06-30] MEDS: ATORVASTATIN 20 MG TAB PO SCH (20:46)
[2020-06-30 21:00] VITALS: BP 158/62
[2020-07-01] VITALS (7 sets, daily range): BP systolic 148–177; BP diastolic 56–76
[2020-07-01] MEDS: CLONIDINE HCL 0.1 MG TAB PO PRN ×2 (01:14→16:40)
[2020-07-01 08:31] LABS: MEAN CORPUSCULAR HEMOGLOBIN 26.3 pg (28-32); MEAN CORPUSCULAR HGB CONC 30.3 g/dL (31-35); MEAN CORPUSCULAR VOLUME 86.8 fL (81-99); PLATELET COUNT 306 x10e3/uL (140-360); RED CELL DISTRIBUTION WIDTH 14.6 % (11.7-14.4)
[2020-07-01] MEDS: SILDENAFIL CITRATE 20 MG TAB PO SCH ×3 (09:00→21:00)
[2020-07-01] MEDS: ASCORBIC ACID 500 MG TAB PO SCH ×2 (09:00→17:28)
[2020-07-01] MEDS: POLYETHYLENE GLYCOL 3350 17 GM PACK PO SCH (09:00)
[2020-07-01] MEDS: PREDNISONE 20 MG TAB PO SCH (09:00)
[2020-07-01] MEDS: ZINC SULFATE 50 MG CAP PO SCH (09:00)
[2020-07-01 09:13] LABS: ANION GAP 14.9 mmol/L (8-16); CALCIUM 9.1 mg/dL (8.4-10.2); CREATININE, SERUM 1.06 mg/dL (0.57-1.11); POTASSIUM 4.9 mmol/L (3.5-5.1)
[2020-07-01] MEDS: ATORVASTATIN 20 MG TAB PO SCH (21:00)
[2020-07-01] MEDS: ACETAMINOPHEN 325 MG TAB PO PRN (23:30)
[2020-07-02] VITALS (9 sets, daily range): BP systolic 137–178; BP diastolic 52–74
[2020-07-02] MEDS: POLYETHYLENE GLYCOL 3350 17 GM PACK PO SCH (09:00)
[2020-07-02] MEDS: ZINC SULFATE 50 MG CAP PO SCH (09:30)
[2020-07-02] MEDS: CLONIDINE HCL 0.1 MG TAB PO PRN (09:30)
[2020-07-02] MEDS: ASCORBIC ACID 500 MG TAB PO SCH ×2 (09:30→15:59)
[2020-07-02] MEDS: SILDENAFIL CITRATE 20 MG TAB PO SCH ×3 (09:30→20:36)
[2020-07-02] MEDS ORDERED: ENOXAPARIN 30 MG/0.3 ML SYR SC SCH (17:00)
[2020-07-02] MEDS: ATORVASTATIN 20 MG TAB PO SCH (20:36)
[2020-07-02] MEDS: ACETAMINOPHEN 325 MG TAB PO PRN (23:12)
[2020-07-03] VITALS (8 sets, daily range): BP systolic 145–176; BP diastolic 52–68
[2020-07-03 07:38] LABS: BASOPHILS % 0.4 % (0.0-1.0); EOSINOPHILS # (AUTO) 0.4 (0.0-0.4); EOSINOPHILS % 6.7 % (0.0-6.0); HEMATOCRIT 30.1 % (34.2-44.1); HEMOGLOBIN 9.2 g/dL (12.0-16.0); LYMPHOCYTES # (AUTO) 0.6 (1.0-3.2); LYMPHOCYTES % 11.1 % (18.0-39.1); MEAN CORPUSCULAR HEMOGLOBIN 26.4 pg (28-32); MEAN CORPUSCULAR HGB CONC 30.6 g/dL (31-35); MEAN CORPUSCULAR VOLUME 86.5 fL (81-99); MONOCYTES # (AUTO) 0.6 (0.2-0.8); MONOCYTES % 11.1 % (4.4-11.3); NEUTROPHILS # (AUTO) 3.9 (2.1-6.9); NEUTROPHILS % 69.1 % (38.7-80.0); PLATELET COUNT 309 x10e3/uL (140-360); RED BLOOD COUNT 3.48 x10e6/uL (3.6-5.1); RED CELL DISTRIBUTION WIDTH 14.7 % (11.7-14.4)
[2020-07-03 07:51] LABS: ANION GAP 10.5 mmol/L (8-16); BLOOD UREA NITROGEN 40 mg/dL (7-26); BUN/CREATININE RATIO 45 (6-25); CALCIUM 8.6 mg/dL (8.4-10.2); CARBON DIOXIDE 30 mmol/L (22-29); CHLORIDE 101 mmol/L (98-107); CREATININE, SERUM 0.88 mg/dL (0.57-1.11); EST GLOMERULAR FILTRATION RATE > 60 ML/MIN (60-); GLUCOSE 107 mg/dL (74-118); POTASSIUM 4.5 mmol/L (3.5-5.1); SODIUM 137 mmol/L (136-145)
[2020-07-03] MEDS: POLYETHYLENE GLYCOL 3350 17 GM PACK PO SCH (09:00)
[2020-07-03 10:09] LABS: BASOPHILS % 0.4 % (0.0-1.0); EOSINOPHILS # (AUTO) 0.4 (0.0-0.4); EOSINOPHILS % 4.8 % (0.0-6.0); HEMATOCRIT 31.7 % (34.2-44.1); HEMOGLOBIN 9.7 g/dL (12.0-16.0); LYMPHOCYTES # (AUTO) 0.6 (1.0-3.2); LYMPHOCYTES % 7.4 % (18.0-39.1); MEAN CORPUSCULAR HEMOGLOBIN 26.4 pg (28-32); MEAN CORPUSCULAR HGB CONC 30.6 g/dL (31-35); MEAN CORPUSCULAR VOLUME 86.4 fL (81-99); MONOCYTES # (AUTO) 0.8 (0.2-0.8); MONOCYTES % 10.8 % (4.4-11.3); NEUTROPHILS # (AUTO) 5.7 (2.1-6.9); NEUTROPHILS % 75.4 % (38.7-80.0); PLATELET COUNT 313 x10e3/uL (140-360); RED BLOOD COUNT 3.67 x10e6/uL (3.6-5.1); RED CELL DISTRIBUTION WIDTH 14.7 % (11.7-14.4)
[2020-07-03] MEDS: ASCORBIC ACID 500 MG TAB PO SCH ×2 (10:16→16:56)
[2020-07-03] MEDS: SILDENAFIL CITRATE 20 MG TAB PO SCH ×3 (10:16→21:23)
[2020-07-03] MEDS: PANTOPRAZOLE 40 MG 10ML VIAL IV SCH ×2 (10:16→16:56)
[2020-07-03] MEDS: ZINC SULFATE 50 MG CAP PO SCH (10:16)
[2020-07-03 10:25] LABS: INR 0.94; PARTIAL THROMBOPLASTIN TIME 27.6 seconds (23.8-35.5); PROTHROMBIN TIME 13.1 seconds (11.9-14.5)
[2020-07-03] MEDS: CLONIDINE HCL 0.1 MG TAB PO PRN (16:57)
[2020-07-03 18:50] LABS: BASOPHILS % 0.3 % (0.0-1.0); EOSINOPHILS # (AUTO) 0.4 (0.0-0.4); EOSINOPHILS % 4.6 % (0.0-6.0); HEMATOCRIT 30.3 % (34.2-44.1); HEMOGLOBIN 9.3 g/dL (12.0-16.0); LYMPHOCYTES # (AUTO) 0.7 (1.0-3.2); LYMPHOCYTES % 9.5 % (18.0-39.1); MEAN CORPUSCULAR HEMOGLOBIN 26.6 pg (28-32); MEAN CORPUSCULAR HGB CONC 30.7 g/dL (31-35); MEAN CORPUSCULAR VOLUME 86.8 fL (81-99); MONOCYTES # (AUTO) 0.9 (0.2-0.8); MONOCYTES % 11.4 % (4.4-11.3); NEUTROPHILS # (AUTO) 5.6 (2.1-6.9); NEUTROPHILS % 72.8 % (38.7-80.0); PLATELET COUNT 307 x10e3/uL (140-360); RED BLOOD COUNT 3.49 x10e6/uL (3.6-5.1); RED CELL DISTRIBUTION WIDTH 14.7 % (11.7-14.4)
[2020-07-03] MEDS: ATORVASTATIN 20 MG TAB PO SCH (21:23)
[2020-07-03] MEDS: ACETAMINOPHEN 325 MG TAB PO PRN (21:24)
[2020-07-04] VITALS (10 sets, daily range): BP systolic 136–177; BP diastolic 43–74
[2020-07-04 05:34] LABS: BASOPHILS % 0.4 % (0.0-1.0); EOSINOPHILS # (AUTO) 0.4 (0.0-0.4); EOSINOPHILS % 6.2 % (0.0-6.0); HEMATOCRIT 28.2 % (34.2-44.1); HEMOGLOBIN 8.5 g/dL (12.0-16.0); LYMPHOCYTES # (AUTO) 0.7 (1.0-3.2); LYMPHOCYTES % 12.3 % (18.0-39.1); MEAN CORPUSCULAR HEMOGLOBIN 26.3 pg (28-32); MEAN CORPUSCULAR HGB CONC 30.1 g/dL (31-35); MEAN CORPUSCULAR VOLUME 87.3 fL (81-99); MONOCYTES # (AUTO) 0.7 (0.2-0.8); MONOCYTES % 11.6 % (4.4-11.3); NEUTROPHILS # (AUTO) 3.8 (2.1-6.9); NEUTROPHILS % 68.1 % (38.7-80.0); PLATELET COUNT 264 x10e3/uL (140-360); RED BLOOD COUNT 3.23 x10e6/uL (3.6-5.1); RED CELL DISTRIBUTION WIDTH 14.8 % (11.7-14.4)
[2020-07-04 05:59] LABS: % IRON SATURATION 11 % (15-50); IRON 27 ug/dL (50-170); TOTAL IRON BINDING CAPACITY 251 ug/dL (261-478); TRANSFERRIN 179 mg/dL (180-382)
[2020-07-04] MEDS: PANTOPRAZOLE 40 MG 10ML VIAL IV SCH ×2 (09:55→16:20)
[2020-07-04] MEDS: ZINC SULFATE 50 MG CAP PO SCH (09:55)
[2020-07-04] MEDS: ASCORBIC ACID 500 MG TAB PO SCH ×2 (09:55→16:20)
[2020-07-04] MEDS: POLYETHYLENE GLYCOL 3350 17 GM PACK PO SCH (09:55)
[2020-07-04] MEDS: LISINOPRIL 10 MG TAB PO SCH (09:55)
[2020-07-04] MEDS: SILDENAFIL CITRATE 20 MG TAB PO SCH ×3 (09:55→20:30)
[2020-07-04] MEDS ORDERED: METOCLOPRAMIDE HCL 10 MG/2ML VIAL IV ONE (11:30)
[2020-07-04] MEDS: ATORVASTATIN 20 MG TAB PO SCH (20:30)
[2020-07-04] MEDS: ACETAMINOPHEN 325 MG TAB PO PRN (22:05)
[2020-07-04] MEDS: CLONIDINE HCL 0.1 MG TAB PO PRN (22:05)
[2020-07-05] VITALS (8 sets, daily range): BP systolic 125–157; BP diastolic 43–61
[2020-07-05 07:01] LABS: CLARITY,URINE HAZY (CLEAR); COLOR,URINE YELLOW (YELLOW); LEUKOCYTE ESTERASE ,URINE MODERATE (NEGATIVE)
[2020-07-05 07:02] LABS: KETONES,URINE NEGATIVE (NEGATIVE); NITRITE,URINE NEGATIVE (NEGATIVE); PROTEIN,URINE DIPSTICK 1+ (NEGATIVE); URINE UROBILINOGEN 1 mg/dL (0.2 - 1)
[2020-07-05 07:21] LABS: BACTERIA,URINE FEW /HPF; EPITHELIAL CELLS,URINE FEW /LPF; RBC,URINE 0-5 /HPF (0-5); TRANSITIONAL EPI CELLS,URINE FEW; WBC,URINE (MAN) >50 /HPF (0-5)
[2020-07-05] MEDS: PANTOPRAZOLE 40 MG 10ML VIAL IV SCH ×2 (08:53→16:30)
[2020-07-05] MEDS: LISINOPRIL 10 MG TAB PO SCH (08:53)
[2020-07-05] MEDS: ZINC SULFATE 50 MG CAP PO SCH (08:53)
[2020-07-05] MEDS: SILDENAFIL CITRATE 20 MG TAB PO SCH ×3 (08:53→20:03)
[2020-07-05] MEDS: POLYETHYLENE GLYCOL 3350 17 GM PACK PO SCH (08:53)
[2020-07-05] MEDS: ASCORBIC ACID 500 MG TAB PO SCH ×2 (08:53→16:30)
[2020-07-05] MEDS: BISACODYL 5 MG TAB EC PO SCH ×3 (14:32→16:30)
[2020-07-05] MEDS: CLONIDINE HCL 0.1 MG TAB PO PRN (16:30)
[2020-07-05] MEDS: CITRATE OF MAGNESIA 300ML BOTTLE PO SCH (18:45)
[2020-07-05] MEDS: ATORVASTATIN 20 MG TAB PO SCH (20:03)
[2020-07-05] MEDS: ACETAMINOPHEN 325 MG TAB PO PRN (21:30)
[2020-07-06] VITALS (8 sets, daily range): BP systolic 116–166; BP diastolic 48–69
[2020-07-06 05:30] LABS: HEMATOCRIT 28.4 % (34.2-44.1); HEMOGLOBIN 8.5 g/dL (12.0-16.0); MEAN CORPUSCULAR HEMOGLOBIN 26.6 pg (28-32); MEAN CORPUSCULAR HGB CONC 29.9 g/dL (31-35); PLATELET COUNT 270 x10e3/uL (140-360); RED BLOOD COUNT 3.19 x10e6/uL (3.6-5.1); RED CELL DISTRIBUTION WIDTH 15.3 % (11.7-14.4)
[2020-07-06 05:51] LABS: ANION GAP 13.4 mmol/L (8-16); CALCIUM 8.5 mg/dL (8.4-10.2); CREATININE, SERUM 0.96 mg/dL (0.57-1.11); POTASSIUM 3.4 mmol/L (3.5-5.1)
[2020-07-06] MEDS: CITRATE OF MAGNESIA 300ML BOTTLE PO SCH (07:04)
[2020-07-06] MEDS: SILDENAFIL CITRATE 20 MG TAB PO SCH ×3 (09:00→20:25)
[2020-07-06] MEDS: LISINOPRIL 10 MG TAB PO SCH (09:00)
[2020-07-06] MEDS: ASCORBIC ACID 500 MG TAB PO SCH ×2 (09:00→16:12)
[2020-07-06] MEDS: ZINC SULFATE 50 MG CAP PO SCH (09:00)
[2020-07-06] MEDS: POLYETHYLENE GLYCOL 3350 17 GM PACK PO SCH (09:00)
[2020-07-06] MEDS ORDERED: POTASSIUM CHLORIDE 20MEQ/100ML 100 ML IV ONE (09:15)
[2020-07-06] MEDS: PANTOPRAZOLE 40 MG 10ML VIAL IV SCH ×2 (09:55→16:12)
[2020-07-06] MEDS ORDERED: HYOSCYAMINE SULFATE 0.5 MG/ML INJ ONE (12:28)
[2020-07-06] MEDS: HYDRALAZINE HCL 20 MG/ML VIAL IV PRN (16:12)
[2020-07-06] MEDS ORDERED: PROPOFOL IV EMULSION 10 MG/ML 20 ML VIAL ONE (19:26)
[2020-07-06] MEDS ORDERED: PHENYLEPHRINE HCL 1% 10 MG/ML VIAL ONE (19:26)
[2020-07-06] MEDS ORDERED: LIDOCAINE HCL 2% LOCAL INJ 5 ML SDV VIAL INJ ONE (19:26)
[2020-07-06] MEDS: ATORVASTATIN 20 MG TAB PO SCH (20:25)
[2020-07-06] MEDS: ACETAMINOPHEN 325 MG TAB PO PRN (20:51)
[2020-07-07] VITALS (8 sets, daily range): BP systolic 131–164; BP diastolic 50–67
[2020-07-07 05:07] LABS: BASOPHILS % 0.3 % (0.0-1.0); EOSINOPHILS # (AUTO) 0.4 (0.0-0.4); EOSINOPHILS % 4.8 % (0.0-6.0); HEMATOCRIT 28.4 % (34.2-44.1); HEMOGLOBIN 8.6 g/dL (12.0-16.0); LYMPHOCYTES # (AUTO) 0.7 (1.0-3.2); LYMPHOCYTES % 8.5 % (18.0-39.1); MEAN CORPUSCULAR HEMOGLOBIN 26.7 pg (28-32); MEAN CORPUSCULAR HGB CONC 30.3 g/dL (31-35); MEAN CORPUSCULAR VOLUME 88.2 fL (81-99); MONOCYTES # (AUTO) 0.6 (0.2-0.8); MONOCYTES % 8.1 % (4.4-11.3); NEUTROPHILS % 77.5 % (38.7-80.0); PLATELET COUNT 255 x10e3/uL (140-360); RED BLOOD COUNT 3.22 x10e6/uL (3.6-5.1); RED CELL DISTRIBUTION WIDTH 15.6 % (11.7-14.4)
[2020-07-07] MEDS: POLYETHYLENE GLYCOL 3350 17 GM PACK PO SCH (09:00)
[2020-07-07] MEDS: PANTOPRAZOLE 40 MG 10ML VIAL IV SCH ×2 (09:52→17:52)
[2020-07-07] MEDS: LISINOPRIL 10 MG TAB PO SCH (09:53)
[2020-07-07] MEDS: SILDENAFIL CITRATE 20 MG TAB PO SCH ×3 (09:53→20:30)
[2020-07-07] MEDS: ASCORBIC ACID 500 MG TAB PO SCH ×2 (09:53→17:52)
[2020-07-07] MEDS: ZINC SULFATE 50 MG CAP PO SCH (09:53)
[2020-07-07] MEDS: ATORVASTATIN 20 MG TAB PO SCH (20:29)
[2020-07-07] MEDS: ACETAMINOPHEN 325 MG TAB PO PRN (21:22)
[2020-07-08] VITALS (8 sets, daily range): BP systolic 128–168; BP diastolic 51–69
[2020-07-08] MEDS: HYDRALAZINE HCL 20 MG/ML VIAL IV PRN (00:28)
[2020-07-08] MEDS: ASCORBIC ACID 500 MG TAB PO SCH ×2 (09:05→16:28)
[2020-07-08] MEDS: LISINOPRIL 10 MG TAB PO SCH (09:05)
[2020-07-08] MEDS: ZINC SULFATE 50 MG CAP PO SCH (09:05)
[2020-07-08] MEDS: POLYETHYLENE GLYCOL 3350 17 GM PACK PO SCH (09:05)
[2020-07-08] MEDS: PANTOPRAZOLE 40 MG 10ML VIAL IV SCH ×2 (09:05→16:28)
[2020-07-08] MEDS: SILDENAFIL CITRATE 20 MG TAB PO SCH ×3 (09:05→21:09)
[2020-07-08] MEDS: IRON SUCROSE 100 MG in SODIUM CHLORIDE 0.9% 100 ML 100 ML IV SCH (09:05)
[2020-07-08] MEDS ORDERED: SODIUM CHLORIDE 0.9% 250ML 250 ML ONE (09:47)
[2020-07-08] MEDS: ATORVASTATIN 20 MG TAB PO SCH (21:09)
[2020-07-08] MEDS: ACETAMINOPHEN 325 MG TAB PO PRN (21:10)
[2020-07-09] VITALS (8 sets, daily range): BP systolic 130–169; BP diastolic 57–68
[2020-07-09] MEDS: IRON SUCROSE 100 MG in SODIUM CHLORIDE 0.9% 100 ML 100 ML IV SCH (08:40)
[2020-07-09] MEDS: LISINOPRIL 10 MG TAB PO SCH (08:40)
[2020-07-09] MEDS: SILDENAFIL CITRATE 20 MG TAB PO SCH ×3 (08:40→20:56)
[2020-07-09] MEDS: PANTOPRAZOLE 40 MG 10ML VIAL IV SCH ×2 (08:40→16:25)
[2020-07-09] MEDS: POLYETHYLENE GLYCOL 3350 17 GM PACK PO SCH (08:40)
[2020-07-09] MEDS: ZINC SULFATE 50 MG CAP PO SCH (08:40)
[2020-07-09] MEDS: ASCORBIC ACID 500 MG TAB PO SCH ×2 (08:40→16:25)
[2020-07-09] MEDS: ATORVASTATIN 20 MG TAB PO SCH (20:56)
[2020-07-09] MEDS: ACETAMINOPHEN 325 MG TAB PO PRN (20:57)
[2020-07-10] VITALS (9 sets, daily range): BP systolic 135–155; BP diastolic 51–70
[2020-07-10] MEDS: ZINC SULFATE 50 MG CAP PO SCH (08:52)
[2020-07-10] MEDS: IRON SUCROSE 100 MG in SODIUM CHLORIDE 0.9% 100 ML 100 ML IV SCH (08:52)
[2020-07-10] MEDS: POLYETHYLENE GLYCOL 3350 17 GM PACK PO SCH (08:52)
[2020-07-10] MEDS: SILDENAFIL CITRATE 20 MG TAB PO SCH ×3 (08:52→21:21)
[2020-07-10] MEDS: ASCORBIC ACID 500 MG TAB PO SCH ×2 (08:52→16:25)
[2020-07-10] MEDS: LISINOPRIL 10 MG TAB PO SCH (08:52)
[2020-07-10] MEDS: PANTOPRAZOLE 40 MG 10ML VIAL IV SCH ×2 (08:52→16:25)
[2020-07-10] MEDS: ATORVASTATIN 20 MG TAB PO SCH (21:21)
[2020-07-10] MEDS: ACETAMINOPHEN 325 MG TAB PO PRN (21:21)
[2020-07-11] VITALS (9 sets, daily range): BP systolic 134–161; BP diastolic 59–89
[2020-07-11 06:00] LABS: BASOPHILS % 0.8 % (0.0-1.0); EOSINOPHILS # (AUTO) 0.4 (0.0-0.4); EOSINOPHILS % 10.1 % (0.0-6.0); HEMATOCRIT 26.9 % (34.2-44.1); LYMPHOCYTES # (AUTO) 0.5 (1.0-3.2); LYMPHOCYTES % 12.9 % (18.0-39.1); MEAN CORPUSCULAR HEMOGLOBIN 26.8 pg (28-32); MEAN CORPUSCULAR HGB CONC 29.7 g/dL (31-35); MONOCYTES # (AUTO) 0.3 (0.2-0.8); MONOCYTES % 7.8 % (4.4-11.3); NEUTROPHILS # (AUTO) 2.7 (2.1-6.9); NEUTROPHILS % 67.9 % (38.7-80.0); PLATELET COUNT 168 x10e3/uL (140-360); RED BLOOD COUNT 2.99 x10e6/uL (3.6-5.1); RED CELL DISTRIBUTION WIDTH 16.2 % (11.7-14.4)
[2020-07-11 06:24] LABS: ALANINE AMINOTRANSFERASE 15 IU/L (0-55); ALBUMIN 2.7 g/dL (3.5-5.0); ALBUMIN/GLOBULIN RATIO 0.9 (0.8-2.0); ALKALINE PHOSPHATASE 48 IU/L (40-150); ANION GAP 9.3 mmol/L (8-16); BLOOD UREA NITROGEN 19 mg/dL (7-26); BUN/CREATININE RATIO 23 (6-25); CALCIUM 8.3 mg/dL (8.4-10.2); CARBON DIOXIDE 26 mmol/L (22-29); CHLORIDE 108 mmol/L (98-107); CREATININE, SERUM 0.83 mg/dL (0.57-1.11); EST GLOMERULAR FILTRATION RATE > 60 ML/MIN (60-); GLUCOSE 102 mg/dL (74-118); POTASSIUM 4.3 mmol/L (3.5-5.1); SODIUM 139 mmol/L (136-145)
[2020-07-11] MEDS: PANTOPRAZOLE 40 MG 10ML VIAL IV SCH ×2 (09:34→16:03)
[2020-07-11] MEDS: IRON SUCROSE 100 MG in SODIUM CHLORIDE 0.9% 100 ML 100 ML IV SCH (09:35)
[2020-07-11] MEDS: POLYETHYLENE GLYCOL 3350 17 GM PACK PO SCH (09:35)
[2020-07-11] MEDS: ZINC SULFATE 50 MG CAP PO SCH (09:35)
[2020-07-11] MEDS: SILDENAFIL CITRATE 20 MG TAB PO SCH ×3 (09:35→21:30)
[2020-07-11] MEDS: ASCORBIC ACID 500 MG TAB PO SCH ×2 (09:35→16:03)
[2020-07-11] MEDS: LISINOPRIL 10 MG TAB PO SCH (09:35)
[2020-07-11] MEDS: ATORVASTATIN 20 MG TAB PO SCH (21:30)
[2020-07-11] MEDS: ACETAMINOPHEN 325 MG TAB PO PRN (21:31)
[2020-07-12] VITALS (7 sets, daily range): BP systolic 139–181; BP diastolic 58–79
[2020-07-12] MEDS: SILDENAFIL CITRATE 20 MG TAB PO SCH ×3 (07:54→20:49)
[2020-07-12] MEDS: PANTOPRAZOLE 40 MG 10ML VIAL IV SCH ×2 (07:54→17:56)
[2020-07-12] MEDS: IRON SUCROSE 100 MG in SODIUM CHLORIDE 0.9% 100 ML 100 ML IV SCH (07:54)
[2020-07-12] MEDS: ASCORBIC ACID 500 MG TAB PO SCH ×2 (07:54→17:56)
[2020-07-12] MEDS: ZINC SULFATE 50 MG CAP PO SCH (07:54)
[2020-07-12] MEDS: LISINOPRIL 10 MG TAB PO SCH (07:54)
[2020-07-12] MEDS: POLYETHYLENE GLYCOL 3350 17 GM PACK PO SCH (07:54)
[2020-07-12 08:30] LABS: BASOPHILS % 0.9 % (0.0-1.0); EOSINOPHILS # (AUTO) 0.4 (0.0-0.4); EOSINOPHILS % 8.5 % (0.0-6.0); HEMATOCRIT 29.8 % (34.2-44.1); HEMOGLOBIN 8.9 g/dL (12.0-16.0); LYMPHOCYTES # (AUTO) 0.6 (1.0-3.2); LYMPHOCYTES % 13.9 % (18.0-39.1); MEAN CORPUSCULAR HEMOGLOBIN 26.6 pg (28-32); MEAN CORPUSCULAR HGB CONC 29.9 g/dL (31-35); MEAN CORPUSCULAR VOLUME 89.2 fL (81-99); MONOCYTES # (AUTO) 0.3 (0.2-0.8); MONOCYTES % 6.3 % (4.4-11.3); NEUTROPHILS # (AUTO) 3.2 (2.1-6.9); PLATELET COUNT 186 x10e3/uL (140-360); RED BLOOD COUNT 3.34 x10e6/uL (3.6-5.1); RED CELL DISTRIBUTION WIDTH 15.9 % (11.7-14.4)
[2020-07-12] MEDS: ATORVASTATIN 20 MG TAB PO SCH (20:49)
[2020-07-12] MEDS: ACETAMINOPHEN 325 MG TAB PO PRN (21:16)
[2020-07-12] MEDS: HYDRALAZINE HCL 20 MG/ML VIAL IV PRN (23:44)
[2020-07-13] VITALS (9 sets, daily range): BP systolic 145–165; BP diastolic 62–77
[2020-07-13] MEDS: PANTOPRAZOLE 40 MG 10ML VIAL IV SCH ×2 (09:04→16:06)
[2020-07-13] MEDS: IRON SUCROSE 100 MG in SODIUM CHLORIDE 0.9% 100 ML 100 ML IV SCH (09:04)
[2020-07-13] MEDS: SILDENAFIL CITRATE 20 MG TAB PO SCH ×3 (09:05→21:47)
[2020-07-13] MEDS: POLYETHYLENE GLYCOL 3350 17 GM PACK PO SCH (09:05)
[2020-07-13] MEDS: ASCORBIC ACID 500 MG TAB PO SCH ×2 (09:05→16:06)
[2020-07-13] MEDS: LISINOPRIL 10 MG TAB PO SCH (09:05)
[2020-07-13] MEDS: ZINC SULFATE 50 MG CAP PO SCH (09:05)
[2020-07-13] MEDS: ACETAMINOPHEN 325 MG TAB PO PRN (21:47)
[2020-07-13] MEDS: ATORVASTATIN 20 MG TAB PO SCH (21:47)
[2020-07-14] VITALS (11 sets, daily range): BP systolic 130–170; BP diastolic 58–69
[2020-07-14] MEDS: SILDENAFIL CITRATE 20 MG TAB PO SCH ×3 (08:46→22:09)
[2020-07-14] MEDS: ZINC SULFATE 50 MG CAP PO SCH (08:46)
[2020-07-14] MEDS: LISINOPRIL 10 MG TAB PO SCH (08:46)
[2020-07-14] MEDS: PANTOPRAZOLE 40 MG 10ML VIAL IV SCH ×2 (08:46→16:48)
[2020-07-14] MEDS: ASCORBIC ACID 500 MG TAB PO SCH ×2 (08:46→16:48)
[2020-07-14] MEDS: IRON SUCROSE 100 MG in SODIUM CHLORIDE 0.9% 100 ML 100 ML IV SCH (08:46)
[2020-07-14] MEDS: POLYETHYLENE GLYCOL 3350 17 GM PACK PO SCH (08:46)
[2020-07-14] MEDS: ATORVASTATIN 20 MG TAB PO SCH (22:09)
[2020-07-14] MEDS: ACETAMINOPHEN 325 MG TAB PO PRN (23:21)
[2020-07-15] VITALS (8 sets, daily range): BP systolic 136–175; BP diastolic 58–78
[2020-07-15 05:26] LABS: EOSINOPHILS # (AUTO) 0.4 (0.0-0.4); EOSINOPHILS % 9.6 % (0.0-6.0); HEMATOCRIT 27.6 % (34.2-44.1); HEMOGLOBIN 8.3 g/dL (12.0-16.0); LYMPHOCYTES # (AUTO) 0.6 (1.0-3.2); LYMPHOCYTES % 14.7 % (18.0-39.1); MEAN CORPUSCULAR HEMOGLOBIN 27.8 pg (28-32); MEAN CORPUSCULAR HGB CONC 30.1 g/dL (31-35); MEAN CORPUSCULAR VOLUME 92.3 fL (81-99); MONOCYTES # (AUTO) 0.3 (0.2-0.8); MONOCYTES % 6.9 % (4.4-11.3); NEUTROPHILS # (AUTO) 2.7 (2.1-6.9); NEUTROPHILS % 67.3 % (38.7-80.0); PLATELET COUNT 151 x10e3/uL (140-360); RED BLOOD COUNT 2.99 x10e6/uL (3.6-5.1); RED CELL DISTRIBUTION WIDTH 16.8 % (11.7-14.4)
[2020-07-15] MEDS: LISINOPRIL 10 MG TAB PO SCH (08:54)
[2020-07-15] MEDS: POLYETHYLENE GLYCOL 3350 17 GM PACK PO SCH (08:54)
[2020-07-15] MEDS: IRON SUCROSE 100 MG in SODIUM CHLORIDE 0.9% 100 ML 100 ML IV SCH (08:54)
[2020-07-15] MEDS: PANTOPRAZOLE 40 MG 10ML VIAL IV SCH ×2 (08:54→16:03)
[2020-07-15] MEDS: ASCORBIC ACID 500 MG TAB PO SCH ×2 (08:54→16:03)
[2020-07-15] MEDS: ZINC SULFATE 50 MG CAP PO SCH (08:54)
[2020-07-15] MEDS: SILDENAFIL CITRATE 20 MG TAB PO SCH ×3 (08:54→20:37)
[2020-07-15] MEDS: CLONIDINE HCL 0.1 MG TAB PO PRN (20:36)
[2020-07-15] MEDS: ACETAMINOPHEN 325 MG TAB PO PRN (20:37)
[2020-07-15] MEDS: ATORVASTATIN 20 MG TAB PO SCH (20:37)
[2020-07-16 00:03] VITALS: BP 125/69
[2020-07-16 04:57] VITALS: BP 143/60
[2020-07-16 08:05] VITALS: BP 161/66
[2020-07-16] MEDS: POLYETHYLENE GLYCOL 3350 17 GM PACK PO SCH (08:05)
[2020-07-16] MEDS: IRON SUCROSE 100 MG in SODIUM CHLORIDE 0.9% 100 ML 100 ML IV SCH (08:05)
[2020-07-16] MEDS: PANTOPRAZOLE 40 MG 10ML VIAL IV SCH (08:05)
[2020-07-16] MEDS: ZINC SULFATE 50 MG CAP PO SCH (08:06)
[2020-07-16] MEDS: LISINOPRIL 10 MG TAB PO SCH (08:06)
[2020-07-16] MEDS: SILDENAFIL CITRATE 20 MG TAB PO SCH (08:06)
[2020-07-16] MEDS: ASCORBIC ACID 500 MG TAB PO SCH (08:06)
[2020-07-16 08:20] VITALS: BP 161/66
[2020-07-16 12:00] VITALS: BP 139/58
[2020-07-16 15:00] VITALS: BP 173/71
[2020-07-16] MEDS ORDERED: ENOXAPARIN INJ 80 MG/0.8 ML SYR SC SCH (21:00)
== END 2020-07-16 15:40 | disposition home or self-care (01) | DRG 177 ==
LOC: ER 14:57 → ERHOLD 15:23 → MED/SURG3 22:23 → IMCU 06-21 14:49
PROVIDERS: ADMIT Internal Medicine; ATTEND Internal Medicine
PROC: 8E0ZXY6 Isolation (ICD-10-PCS; principal; 2020-06-20)
PROC: 0DBK8ZZ Excision of Ascending Colon, Via Natural or Artificial Opening Endoscopic (ICD-10-PCS; 2020-06-20)
PROC: 0DBL8ZZ Excision of Transverse Colon, Via Natural or Artificial Opening Endoscopic (ICD-10-PCS; 2020-06-20)
PROC: 0D5H8ZZ Destruction of Cecum, Via Natural or Artificial Opening Endoscopic (ICD-10-PCS; 2020-06-20)
PROC: 02HV33Z Insertion of Infusion Device into Superior Vena Cava, Percutaneous Approach (ICD-10-PCS; 2020-06-23)
PROC: 5A1D70Z Performance of Urinary Filtration, Intermittent, Less than 6 Hours Per Day (ICD-10-PCS; 2020-06-23)
PROC: XW043E5 Introduction of Remdesivir Anti-infective into Central Vein, Percutaneous Approach, New Technology Group 5 (ICD-10-PCS; 2020-06-23)
PROC: 0DB78ZX Excision of Stomach, Pylorus, Via Natural or Artificial Opening Endoscopic, Diagnostic (ICD-10-PCS; 2020-07-04)
PROC: 0DB68ZZ Excision of Stomach, Via Natural or Artificial Opening Endoscopic (ICD-10-PCS; 2020-07-04)
DX: U07.1 COVID-19 (principal); J12.82 Pneumonia due to coronavirus disease 2019; J96.01 Acute respiratory failure with hypoxia; K55.21 Angiodysplasia of colon with hemorrhage; J69.0 Pneumonitis due to inhalation of food and vomit; A41.9 Sepsis, unspecified organism; E87.2 Acidosis; I50.22 Chronic systolic (congestive) heart failure; D62 Acute posthemorrhagic anemia; I13.0 Hypertensive heart and chronic kidney disease with heart failure and stage 1 through stage 4 chronic kidney disease, or unspecified chronic kidney disease; M34.9 Systemic sclerosis, unspecified; E78.5 Hyperlipidemia, unspecified; E11.9 Type 2 diabetes mellitus without complications; I27.29 Other secondary pulmonary hypertension; Z99.81 Dependence on supplemental oxygen; Z20.822 Contact with and (suspected) exposure to COVID-19; E11.22 Type 2 diabetes mellitus with diabetic chronic kidney disease; D63.8 Anemia in other chronic diseases classified elsewhere; K57.90 Diverticulosis of intestine, part unspecified, without perforation or abscess without bleeding; K63.5 Polyp of colon; K64.8 Other hemorrhoids; F32.9 Major depressive disorder, single episode, unspecified; N18.9 Chronic kidney disease, unspecified; K20.90 Esophagitis, unspecified without bleeding
CPT/HCPCS: 36415; 36556; 43239; 45385; 45388; 71045; 74470; 76770; 76937; 77001; 80048; 80053; 80162; 81001; 82270; 82550; 82553; 82607; 82746; 82948; 83540; 83735; 83880; 84466; 84484; 85007; 85025; 85027; 85045; 85610; 85730; 86705; 86706; 87040; 87340; 88305; 88312; 90962; 93005; 93306; 96361; 97139; 99251; 99285; C1752; J0360; J0456; J0696; J1100; J1644; J1650; J1756; J1980; J2001; J2150; J2370; J2765; J3480; J7030; J7050; J7512; U0002